=== PATIENT | male | born 1955 | race Caucasian/White ===

== ENCOUNTER 2021-11-09 07:42 | Outpatient (CLI) | payer MEDICARE, OTHER ==
[2021-11-09] MEDS ORDERED: Magnevist 469MG/ML 20 ML VIAL ONE (09:26)
== END 2021-11-09 07:43 | disposition home or self-care (01) ==
LOC: TBSIIMAG 07:42
PROVIDERS: ATTEND Urology
DX: R97.20 Elevated prostate specific antigen [PSA] (principal); R59.0 Localized enlarged lymph nodes
CPT/HCPCS: 72197; 82565; A9579

== ENCOUNTER 2022-03-12 01:21 | Observation (INO) | payer MEDICARE, OTHER ==
[2022-03-12 02:32] LABS: #Basophils 0.1 thou/uL (0.0-0.2); #Eosinphils 0.3 thou/uL (0.0-0.7); #Monocytes 0.5 thou/uL (0.11-0.59); #Neutrophils 4.9 thou/uL (1.40-6.50); %Basophils 0.8 % (0.0-1.0); %Eosinophils 3.6 % (0.0-10.0); %Lymphocytes 25.4 % (21.0-51.0); %Monocytes 6.4 % (0.0-10.0); %Neutrophils 63.8 % (42.0-75.0); Hemoglobin 13.9 g/dL (14.0-18.0); Mean Corpuscular HGB CONC 33.4 g/dL (32.0-36.0); Mean Corpuscular Hemoglobin 31.6 pg (27.0-31.0); Mean Corpuscular Volume 94.5 fL (78.0-98.0); Mean Platelet Volume 7.4 fL (7.4-10.4); Platelet Count 252 thou/uL (130-400); RBC Distribution Width 11.4 % (11.5-14.5); Red Blood Cell (RBC) Count 4.41 mill/uL (4.70-6.10); White Blood Cell (WBC) Count 7.7 thou/uL (4.8-10.8)
[2022-03-12 02:54] LABS: ALT (SGPT) 12 U/L (8-55); AST (SGOT) 16 U/L (5-34); Albumin 4.2 g/dL (3.4-4.8); Alkaline Phosphatase 72 U/L (40-110); Anion Gap 15 mmol/L (10-20); BUN (Urea Nitrogen) 16 mg/dL (8.4-25.7); Bilirubin, Total 0.6 mg/dL (0.2-1.2); Calc. Creatinine Clearance 0 mL/min (70-130); Calcium 9.5 mg/dL (7.8-10.44); Carbon Dioxide 25 mmol/L (23-31); Chloride 104 mmol/L (98-107); Estimated GFR 75; Globulin 3.6 g/dL (2.4-3.5); Glucose 106 mg/dL (80-115); Lipase 40 U/L (8-78); Potassium 3.9 mmol/L (3.5-5.1); Protein, Total 7.8 g/dL (5.8-8.1); Sodium 140 mmol/L (136-145)
[2022-03-12] MEDS ORDERED: Aspirin Chewable 81 MG TAB ONE (04:36)
[2022-03-12] MEDS ORDERED: Acetaminophen 325 MG TAB PO PRN (05:20)
[2022-03-12] MEDS ORDERED: Nitroglycerin 0.4 MG TAB (25 Tab Bottle) SL PRN (05:20)
[2022-03-12] MEDS ORDERED: Ondansetron PF 4 MG/2 ML Vial IVP PRN (05:20)
[2022-03-12] MEDS ORDERED: Ondansetron ODT 4 MG TAB PO PRN (05:20)
[2022-03-12] MEDS ORDERED: Acetaminophen 650 MG Suppository PR PRN (05:20)
[2022-03-12 05:55] LABS: Troponin I 0.015 ng/mL (< 0.028)
[2022-03-12 06:44] VITALS: BMI 28.5
[2022-03-12] MEDS ORDERED: Levothyroxine Sodium 75 MCG TAB PO SCH (07:45)
[2022-03-12] MEDS ORDERED: Aspirin Chewable 81 MG TAB PO SCH (08:00)
[2022-03-12 08:57] LABS: Troponin I Less than 0.010 ng/mL (< 0.028)
[2022-03-12] MEDS ORDERED: Losartan 25 MG TAB PO SCH (09:00)
[2022-03-12] MEDS ORDERED: Hydrochlorothiazide 25 MG TAB PO SCH (09:00)
[2022-03-12 12:27] VITALS: BP 115/68; TEMP 97.8
[2022-03-13] MEDS ORDERED: Levothyroxine Sodium 75 MCG TAB PO SCH (06:00)
== END 2022-03-12 13:27 | disposition home or self-care (01) ==
LOC: ERS 01:21 → 2SW 04:39
PROVIDERS: ADMIT Family Medicine; ATTEND Family Medicine
DX: R07.89 Other chest pain (principal); I44.7 Left bundle-branch block, unspecified; M54.2 Cervicalgia; M54.9 Dorsalgia, unspecified; I10 Essential (primary) hypertension; E03.9 Hypothyroidism, unspecified; E78.5 Hyperlipidemia, unspecified; F17.220 Nicotine dependence, chewing tobacco, uncomplicated; Z79.890 Hormone replacement therapy; Z79.899 Other long term (current) drug therapy; Z20.822 Contact with and (suspected) exposure to COVID-19
CPT/HCPCS: 71045; 80053; 83690; 84484 ×2; 85025; 93005; 99285; U0003; U0005; 36415